=== PATIENT | female | born 1985 | race Caucasian/White ===

== ENCOUNTER 2021-04-07 17:03 | Inpatient (IN) | payer MEDICARE ==
[~2021-04-07] VITALS: Ht 165.1 cm; Wt 88.0 kg
[2021-04-07 18:37] LABS: BASOPHILS % (AUTO) 0.6 % (0.0-2.0); EOSINOPHILS % (AUTO) 5.5 % (1.0-6.0); HEMATOCRIT 40.4 % (36-46); HEMOGLOBIN 13.6 g/dL (12.0-16.0); LYMPHOCYTES # (AUTO) 1.7 K/uL (1.0-4.8); LYMPHOCYTES % (AUTO) 28.9 % (22.0-44.0); MEAN CORPUSCULAR HEMOGLOBIN 30.2 pg (26.0-34.0); MEAN CORPUSCULAR HGB CONC 33.7 G/dL (31.0-37.0); MEAN CORPUSCULAR VOLUME 90 fL (80-100); MONOCYTES # (AUTO) 0.5 K/uL (0.1-1.0); MONOCYTES % (AUTO) 8.3 % (2.0-9.0); NEUTROPHILS # (AUTO) 3.4 K/uL (1.8-7.7); NEUTROPHILS % (AUTO) 56.7 % (40.0-70.0); PLATELET COUNT (AUTO) 234 K/uL (150-450); RED BLOOD CELL COUNT(AUTO) 4.51 MIL/uL (4.00-5.20); RED CELL DISTRIBUTION WIDTH 13.5 % (11.5-14.5)
[2021-04-07 18:52] LABS: ANION GAP 11 mmol/L (8-16); CALCIUM, TOTAL 8.9 mg/dL (8.8-10.5); CARBON DIOXIDE 26 mmol/L (22-29); CHLORIDE 106 mmol/L (98-107); CREATININE 0.67 mg/dL (0.60-1.30); GLOMERULAR FILTR. RATE CALC > 60 mL/min (>60); GLUCOSE,RANDOM 78 mg/dL (70-110); POTASSIUM 3.9 mmol/L (3.5-5.1); SODIUM SERUM 143 mmol/L (136-145); UREA NITROGEN, BLOOD 10 mg/dL (7-18)
[2021-04-07 18:56] LABS: AMPHET/METH SCREEN,URINE NEGATIVE (NEGATIVE); BARBITURATE SCREEN, URINE NEGATIVE (NEGATIVE); BENZODIAZEPINES SCREEN,URINE NEGATIVE (NEGATIVE); CANNABINOID SCREEN,URINE NEGATIVE (NEGATIVE); COCAINE SCREEN,URINE NEGATIVE (NEGATIVE); METHADONE SCREEN, URINE NEGATIVE (NEGATIVE); OPIATE SCREEN,URINE NEGATIVE (NEGATIVE)
[2021-04-07 18:59] LABS: ALANINE AMINOTRANSFERASE 13 U/L (12-78); ALBUMIN 3.8 g/dL (3.4-5.0); ALKALINE PHOSPHATASE 41 U/L (46-116); ASPARTATE AMINOTRANSFERASE 13 U/L (15-37); BILIRUBIN,TOTAL 0.3 mg/dL (0.1-1.0); TOTAL PROTEIN, SERUM 7.3 g/dL (6.4-8.2)
[2021-04-07 19:00] LABS: PHENCYCLIDINE SCREEN,URINE NEGATIVE (NEGATIVE)
[2021-04-07 19:08] LABS: SALICYLATE 1.4 mg/dL (2.8-20.0)
[2021-04-07 19:21] LABS: ACETAMINOPHEN < 2 mcg/mL (10-30)
[2021-04-07] MEDS ORDERED: ZOLPIDEM TARTRATE 10 MG TABLET PO PRN (19:30)
[2021-04-07] MEDS ORDERED: QUEtiapine FUMARATE 100 MG TABLET PO PRN (19:30)
[2021-04-07 20:36] LABS: COVID AG,FIA SOURCE NASOPHARYNGEAL
[2021-04-08 01:11] VITALS: BP 129/92
[2021-04-08 08:06] VITALS: BP 116/78
[2021-04-08] MEDS: LORazepam 2 MG TABLET PO PRN ×2 (08:59→17:16)
[2021-04-08] MEDS ORDERED: ALBUTEROL SULFATE HFA 90 MCG/PUFF 8 GM INHALER IH PRN (15:45)
[2021-04-08] MEDS ORDERED: ONDANSETRON HCL 4 MG TABLET PO PRN (15:45)
[2021-04-08] MEDS ORDERED: MAG HYDROX/AL HYDROX/SIMETH ES 30 ML SUSPENSION UDCUP PO PRN (15:45)
[2021-04-08] MEDS ORDERED: ACETAMINOPHEN 325 MG TABLET PO PRN (15:45)
[2021-04-08] MEDS ORDERED: GuaiFENesin/D-METHORPHAN [SUGAR-FREE] 200-20MG/10 ML SYRUP UDCUP PO PRN (15:45)
[2021-04-08] MEDS ORDERED: LOPERAMIDE HCL 2 MG CAPSULE PO PRN (15:45)
[2021-04-08] MEDS ORDERED: CloNIDine HCL 0.1 MG TABLET PO PRN (15:45)
[2021-04-08] MEDS ORDERED: PETROLATUM,WHITE 28 GM JELLY TP PRN (15:45)
[2021-04-08] MEDS ORDERED: IBUPROFEN 400 MG TABLET PO PRN (15:45)
[2021-04-08] MEDS ORDERED: MAGNESIUM HYDROXIDE SUSPENSION 30 ML UDCUP PO PRN (15:45)
[2021-04-08] MEDS ORDERED: NICOTINE 14 MG/24 HOUR PATCH TD PRN (15:45)
[2021-04-08] MEDS ORDERED: DOCUSATE SODIUM 100 MG CAPSULE PO PRN (15:45)
[2021-04-08 16:05] VITALS: BP 120/72
[2021-04-08] MEDS: TraZODone HCL 50 MG TABLET PO SCH (20:12)
[2021-04-08] MEDS: OLANZapine 5 MG TABLET PO SCH (20:12)
[2021-04-09 00:17] VITALS: BP 107/68
[2021-04-09 08:02] VITALS: BP 113/74
[2021-04-09 08:17] LABS: CHOL/HDL RATIO 3.8 (3.9-5.7); FREE T4 (FREE THYROXINE) 0.9 ng/dL (0.76-1.46); THYROID STIMULATING HORMONE 1.23 uIU/mL (0.36-3.74)
[2021-04-09] MEDS: OLANZapine 5 MG TABLET PO SCH ×2 (08:56→20:03)
[2021-04-09] MEDS: BuPROPion HCL XL 150 MG ER TABLET PO SCH (09:01)
[2021-04-09] MEDS: LORazepam 2 MG TABLET PO PRN (12:30)
[2021-04-09 16:02] VITALS: BP 104/67
[2021-04-09] MEDS: TraZODone HCL 50 MG TABLET PO SCH (20:03)
[2021-04-10 00:09] VITALS: BP 101/62
[2021-04-10] MEDS: OLANZapine 5 MG TABLET PO SCH ×2 (08:04→20:08)
[2021-04-10] MEDS: BuPROPion HCL XL 150 MG ER TABLET PO SCH (08:04)
[2021-04-10 08:07] VITALS: BP 112/67
[2021-04-10] MEDS: LORazepam 2 MG TABLET PO PRN (12:56)
[2021-04-10 16:01] VITALS: BP 126/75
[2021-04-10] MEDS: TraZODone HCL 50 MG TABLET PO SCH (20:08)
[2021-04-11 00:20] VITALS: BP 107/68
[2021-04-11] MEDS: OLANZapine 5 MG TABLET PO SCH ×2 (08:10→20:14)
[2021-04-11] MEDS: BuPROPion HCL XL 150 MG ER TABLET PO SCH (08:10)
[2021-04-11 08:12] VITALS: BP 136/77
[2021-04-11 08:24] VITALS: BP 108/60
[2021-04-11] MEDS: LORazepam 2 MG TABLET PO PRN (12:31)
[2021-04-11 16:11] VITALS: BP 104/69
[2021-04-11] MEDS: TraZODone HCL 50 MG TABLET PO SCH (20:14)
[2021-04-12 05:58] VITALS: BP 116/74
[2021-04-12 08:18] VITALS: BP 119/79
[2021-04-12 08:41] LABS: COVID AG,FIA SOURCE NASOPHARYNGEAL
[2021-04-12] MEDS: OLANZapine 5 MG TABLET PO SCH ×2 (09:42→20:14)
[2021-04-12] MEDS: BuPROPion HCL XL 150 MG ER TABLET PO SCH (09:43)
[2021-04-12 16:03] VITALS: BP 116/73
[2021-04-12] MEDS: LORazepam 2 MG TABLET PO PRN (17:33)
[2021-04-12] MEDS: TraZODone HCL 50 MG TABLET PO SCH (20:14)
[2021-04-13 00:03] VITALS: BP 121/76
[2021-04-13 08:06] VITALS: BP 103/74
[2021-04-13] MEDS: OLANZapine 5 MG TABLET PO SCH ×2 (08:46→20:05)
[2021-04-13] MEDS: BuPROPion HCL XL 150 MG ER TABLET PO SCH (08:46)
[2021-04-13] MEDS: LORazepam 2 MG TABLET PO PRN (14:41)
[2021-04-13 16:03] VITALS: BP 106/65
[2021-04-13] MEDS: TraZODone HCL 50 MG TABLET PO SCH (20:05)
[2021-04-14 00:13] VITALS: BP 114/73
[2021-04-14] MEDS: BuPROPion HCL XL 150 MG ER TABLET PO SCH (08:13)
[2021-04-14] MEDS: OLANZapine 5 MG TABLET PO SCH ×2 (08:13→20:09)
[2021-04-14 08:16] VITALS: BP 121/73
[2021-04-14] MEDS: LORazepam 2 MG TABLET PO PRN ×2 (11:19→16:57)
[2021-04-14 16:14] VITALS: BP 125/80
[2021-04-14] MEDS: TraZODone HCL 50 MG TABLET PO SCH (20:09)
[2021-04-15 00:18] VITALS: BP 121/84
[2021-04-15] MEDS: OLANZapine 5 MG TABLET PO SCH ×2 (08:00→20:48)
[2021-04-15] MEDS: BuPROPion HCL XL 150 MG ER TABLET PO SCH (08:01)
[2021-04-15 08:02] VITALS: BP 113/77
[2021-04-15 16:14] VITALS: BP 105/76
[2021-04-15] MEDS: LORazepam 2 MG TABLET PO PRN (18:45)
[2021-04-15] MEDS: TraZODone HCL 50 MG TABLET PO SCH (20:48)
[2021-04-16 00:10] VITALS: BP 113/70
[2021-04-16 08:06] VITALS: BP 114/78
[2021-04-16] MEDS: BuPROPion HCL XL 150 MG ER TABLET PO SCH (08:09)
[2021-04-16] MEDS: OLANZapine 5 MG TABLET PO SCH ×2 (08:09→20:31)
[2021-04-16] MEDS: LORazepam 2 MG TABLET PO PRN ×2 (08:33→16:05)
[2021-04-16 16:07] VITALS: BP 115/66
[2021-04-16] MEDS: TraZODone HCL 50 MG TABLET PO SCH (20:31)
[2021-04-17 00:19] VITALS: BP 123/68
[2021-04-17 08:00] VITALS: BP 123/72
[2021-04-17 08:05] VITALS: BP 123/75
[2021-04-17] MEDS: OLANZapine 5 MG TABLET PO SCH ×2 (08:10→20:30)
[2021-04-17] MEDS: BuPROPion HCL XL 150 MG ER TABLET PO SCH (08:11)
[2021-04-17] MEDS: LORazepam 2 MG TABLET PO PRN (14:02)
[2021-04-17 16:00] VITALS: BP 106/70
[2021-04-17] MEDS: TraZODone HCL 50 MG TABLET PO SCH (20:30)
[2021-04-18 05:34] VITALS: BP 115/71
[2021-04-18] MEDS: OLANZapine 5 MG TABLET PO SCH ×2 (08:04→20:27)
[2021-04-18] MEDS: BuPROPion HCL XL 150 MG ER TABLET PO SCH (08:04)
[2021-04-18 08:05] VITALS: BP 115/74
[2021-04-18 09:39] LABS: GLUCOMETER DEV NAME(LOC) POC.BV
[2021-04-18] MEDS: LORazepam 2 MG TABLET PO PRN ×2 (12:00→16:33)
[2021-04-18 16:02] VITALS: BP 125/66
[2021-04-18] MEDS: TraZODone HCL 50 MG TABLET PO SCH (20:27)
[2021-04-19 06:04] VITALS: BP 104/66
[2021-04-19] MEDS: BuPROPion HCL XL 150 MG ER TABLET PO SCH (08:07)
[2021-04-19] MEDS: OLANZapine 5 MG TABLET PO SCH ×2 (08:07→20:13)
[2021-04-19 08:09] VITALS: BP 108/68
[2021-04-19] MEDS: LORazepam 2 MG TABLET PO PRN ×2 (12:47→17:34)
[2021-04-19 16:05] VITALS: BP 109/73
[2021-04-19] MEDS: TraZODone HCL 50 MG TABLET PO SCH (20:13)
[2021-04-20 00:29] VITALS: BP 108/76
[2021-04-20 08:11] VITALS: BP 105/70
[2021-04-20] MEDS: BuPROPion HCL XL 150 MG ER TABLET PO SCH (09:04)
[2021-04-20] MEDS: OLANZapine 5 MG TABLET PO SCH ×2 (09:04→20:47)
[2021-04-20] MEDS: LORazepam 2 MG TABLET PO PRN ×2 (13:56→20:15)
[2021-04-20 16:13] VITALS: BP 110/66
[2021-04-20] MEDS: TraZODone HCL 50 MG TABLET PO SCH (20:47)
[2021-04-21 06:42] VITALS: BP 127/79
[2021-04-21 08:08] VITALS: BP 126/86
[2021-04-21] MEDS: BuPROPion HCL XL 150 MG ER TABLET PO SCH (08:41)
[2021-04-21] MEDS: OLANZapine 5 MG TABLET PO SCH ×2 (08:41→20:17)
[2021-04-21] MEDS: LORazepam 2 MG TABLET PO PRN (14:35)
[2021-04-21 16:03] VITALS: BP 122/79
[2021-04-21] MEDS: TraZODone HCL 50 MG TABLET PO SCH (20:17)
[2021-04-22 06:52] VITALS: BP 115/81
[2021-04-22 08:06] VITALS: BP 132/85
[2021-04-22] MEDS: BuPROPion HCL XL 150 MG ER TABLET PO SCH (08:10)
[2021-04-22] MEDS: OLANZapine 5 MG TABLET PO SCH ×2 (08:10→20:13)
[2021-04-22 16:10] VITALS: BP 115/68
[2021-04-22] MEDS: LORazepam 2 MG TABLET PO PRN (17:42)
[2021-04-22] MEDS: TraZODone HCL 50 MG TABLET PO SCH (20:13)
[2021-04-23 05:35] VITALS: BP 109/70
[2021-04-23 08:11] VITALS: BP_SYST 121; BP_SYST 128; BP_DIAS 80; BP_DIAS 84
[2021-04-23] MEDS: BuPROPion HCL XL 150 MG ER TABLET PO SCH (08:50)
[2021-04-23] MEDS: OLANZapine 5 MG TABLET PO SCH (08:50)
[2021-04-23] MEDS ORDERED: TRAZ-252 PO (09:27)
[2021-04-23] MEDS ORDERED: BUPR-93 PO (09:28)
[2021-04-23] MEDS ORDERED: OLAN5TAB52 PO (09:28)
== END 2021-04-23 13:00 | disposition home or self-care (01) | DRG 885 ==
LOC: EMS 17:03 → B2X 21:00
DX: F25.1 Schizoaffective disorder, depressive type (principal); R45.851 Suicidal ideations; Z20.822 Contact with and (suspected) exposure to COVID-19; E66.3 Overweight; F41.9 Anxiety disorder, unspecified; R00.1 Bradycardia, unspecified; Z79.899 Other long term (current) drug therapy; Z59.0 Homelessness; Z91.5 Personal history of self-harm; Z88.8 Allergy status to other drugs, medicaments and biological substances; Z68.32 Body mass index [BMI] 32.0-32.9, adult
CPT/HCPCS: 80053; 80061; 83036; 84439; 84443; 85025; 99285; G0480; G0481

== ENCOUNTER 2021-05-11 11:13 | Inpatient (IN) | payer MEDICARE ==
[~2021-05-11] VITALS: Ht 165.1 cm; Wt 88.2 kg
[~2021-05-11 11:13] MED LIST: BUPR-93 PO; OLAN5TAB52 PO; TRAZ-252 PO
[2021-05-11 12:22] LABS: GLUCOMETER DEV NAME(LOC) POC.BV
[2021-05-11] MEDS ORDERED: MAGNESIUM HYDROXIDE SUSPENSION 30 ML UDCUP PO PRN (16:15)
[2021-05-11] MEDS ORDERED: GuaiFENesin/D-METHORPHAN [SUGAR-FREE] 200-20MG/10 ML SYRUP UDCUP PO PRN (16:15)
[2021-05-11] MEDS ORDERED: PETROLATUM,WHITE 28 GM JELLY TP PRN (16:15)
[2021-05-11] MEDS ORDERED: MAG HYDROX/AL HYDROX/SIMETH ES 30 ML SUSPENSION UDCUP PO PRN (16:15)
[2021-05-11] MEDS ORDERED: ALBUTEROL SULFATE HFA 90 MCG/PUFF 8 GM INHALER IH PRN (16:15)
[2021-05-11] MEDS ORDERED: CloNIDine HCL 0.1 MG TABLET PO PRN (16:15)
[2021-05-11] MEDS ORDERED: NICOTINE 14 MG/24 HOUR PATCH TD PRN (16:15)
[2021-05-11] MEDS ORDERED: DOCUSATE SODIUM 100 MG CAPSULE PO PRN (16:15)
[2021-05-11] MEDS ORDERED: LOPERAMIDE HCL 2 MG CAPSULE PO PRN (16:15)
[2021-05-11] MEDS ORDERED: ONDANSETRON HCL 4 MG TABLET PO PRN (16:15)
[2021-05-11 16:54] VITALS: BP 120/75
[2021-05-11] MEDS ORDERED: INFLUENZA VIRUS VACCINE QVS 2021-22 (6MO+)/PF 60 MCG/0.5 ML SYRINGE IM. ONE (17:00)
[2021-05-11] MEDS: LORazepam 2 MG TABLET PO PRN (17:12)
[2021-05-11] MEDS: HALOPERIDOL 5 MG TABLET PO PRN (17:12)
[2021-05-11 17:53] VITALS: BP 132/85
[2021-05-11] MEDS: ZOLPIDEM TARTRATE 10 MG TABLET PO PRN (20:47)
[2021-05-12 00:50] VITALS: BP 122/75
[2021-05-12 07:56] LABS: BASOPHILS % (AUTO) 0.3 % (0.0-2.0); EOSINOPHILS % (AUTO) 4.1 % (1.0-6.0); HEMATOCRIT 38.1 % (36-46); HEMOGLOBIN 12.7 g/dL (12.0-16.0); LYMPHOCYTES # (AUTO) 2.2 K/uL (1.0-4.8); LYMPHOCYTES % (AUTO) 33.8 % (22.0-44.0); MEAN CORPUSCULAR HGB CONC 33.4 G/dL (31.0-37.0); MEAN CORPUSCULAR VOLUME 90 fL (80-100); MONOCYTES # (AUTO) 0.6 K/uL (0.1-1.0); MONOCYTES % (AUTO) 8.6 % (2.0-9.0); NEUTROPHILS # (AUTO) 3.5 K/uL (1.8-7.7); NEUTROPHILS % (AUTO) 53.2 % (40.0-70.0); PLATELET COUNT (AUTO) 240 K/uL (150-450); RED BLOOD CELL COUNT(AUTO) 4.25 MIL/uL (4.00-5.20); RED CELL DISTRIBUTION WIDTH 14.2 % (11.5-14.5)
[2021-05-12 08:06] LABS: HEMOGLOBIN A1C 5.1 % (3.8-5.6)
[2021-05-12] MEDS: LORazepam 2 MG TABLET PO PRN (08:18)
[2021-05-12] MEDS: HALOPERIDOL 5 MG TABLET PO PRN (08:19)
[2021-05-12 08:30] LABS: ALANINE AMINOTRANSFERASE 12 U/L (12-78); ALBUMIN 3.3 g/dL (3.4-5.0); ALKALINE PHOSPHATASE 40 U/L (46-116); ANION GAP 14 mmol/L (8-16); ASPARTATE AMINOTRANSFERASE 5 U/L (15-37); BILIRUBIN,TOTAL 0.3 mg/dL (0.1-1.0); CALCIUM, TOTAL 8.1 mg/dL (8.8-10.5); CARBON DIOXIDE 21 mmol/L (22-29); CHLORIDE 110 mmol/L (98-107); CHOL/HDL RATIO 4.2 (3.9-5.7); CHOLESTEROL 154 mg/dL (131-200); CREATININE 0.93 mg/dL (0.60-1.30); FREE T4 (FREE THYROXINE) 0.97 ng/dL (0.76-1.46); GLOMERULAR FILTR. RATE CALC > 60 mL/min (>60); GLUCOSE,RANDOM 78 mg/dL (70-110); HCG,QUANTITATIVE < 1 mIU/mL (0-6); HDL CHOLESTEROL 37 mg/dL (40-60); LDL CHOL (CALC.) 106 mg/dL (0-130); POTASSIUM 3.7 mmol/L (3.5-5.1); SODIUM SERUM 145 mmol/L (136-145); TOTAL PROTEIN, SERUM 6.7 g/dL (6.4-8.2); TRIGLYCERIDES 53 mg/dL (15-150); UREA NITROGEN, BLOOD 20 mg/dL (7-18)
[2021-05-12 08:32] VITALS: BP 107/71
[2021-05-12 16:15] VITALS: BP 119/85
[2021-05-12] MEDS: OLANZapine 5 MG TABLET PO SCH (16:47)
[2021-05-12] MEDS: TraZODone HCL 50 MG TABLET PO SCH (20:31)
[2021-05-12] MEDS: ZOLPIDEM TARTRATE 10 MG TABLET PO PRN (20:31)
[2021-05-13 00:28] VITALS: BP 110/82
[2021-05-13 08:33] VITALS: BP 116/71
[2021-05-13] MEDS: BuPROPion HCL XL 150 MG ER TABLET PO SCH (08:42)
[2021-05-13] MEDS: OLANZapine 5 MG TABLET PO SCH ×2 (08:42→16:02)
[2021-05-13] MEDS: LORazepam 2 MG TABLET PO PRN ×2 (08:42→16:03)
[2021-05-13 16:05] VITALS: BP 117/76
[2021-05-13] MEDS: ZOLPIDEM TARTRATE 10 MG TABLET PO PRN (20:46)
[2021-05-13] MEDS: TraZODone HCL 50 MG TABLET PO SCH (20:46)
[2021-05-14 00:47] VITALS: BP 112/71
[2021-05-14 08:13] VITALS: BP 110/76
[2021-05-14] MEDS: BuPROPion HCL XL 150 MG ER TABLET PO SCH (08:25)
[2021-05-14] MEDS: OLANZapine 5 MG TABLET PO SCH ×2 (08:25→17:11)
[2021-05-14] MEDS: LORazepam 2 MG TABLET PO PRN (08:52)
[2021-05-14 16:26] VITALS: BP 127/76
[2021-05-14] MEDS: TraZODone HCL 50 MG TABLET PO SCH (20:33)
[2021-05-15 05:29] VITALS: BP 119/74
[2021-05-15] MEDS: LORazepam 2 MG TABLET PO PRN (07:00)
[2021-05-15 08:21] VITALS: BP 110/73
[2021-05-15] MEDS: OLANZapine 5 MG TABLET PO SCH ×2 (08:22→16:48)
[2021-05-15] MEDS: BuPROPion HCL XL 150 MG ER TABLET PO SCH (08:22)
[2021-05-15 16:13] VITALS: BP 117/72
[2021-05-15] MEDS: ZOLPIDEM TARTRATE 10 MG TABLET PO PRN (21:08)
[2021-05-16 01:52] VITALS: BP 112/68
[2021-05-16] MEDS: BuPROPion HCL XL 150 MG ER TABLET PO SCH (08:10)
[2021-05-16] MEDS: LORazepam 2 MG TABLET PO PRN ×2 (08:10→15:52)
[2021-05-16] MEDS: OLANZapine 5 MG TABLET PO SCH ×2 (08:10→16:03)
[2021-05-16] MEDS: HALOPERIDOL 5 MG TABLET PO PRN (08:12)
[2021-05-16 08:36] VITALS: BP 111/68
[2021-05-16 16:19] VITALS: BP 108/80
[2021-05-17 00:06] VITALS: BP 104/76
[2021-05-17] MEDS: OLANZapine 5 MG TABLET PO SCH ×2 (08:29→16:04)
[2021-05-17] MEDS: BuPROPion HCL XL 150 MG ER TABLET PO SCH (08:29)
[2021-05-17 08:43] VITALS: BP 119/78
[2021-05-17] MEDS: HALOPERIDOL 5 MG TABLET PO PRN ×2 (09:50→15:47)
[2021-05-17] MEDS: LORazepam 2 MG TABLET PO PRN ×2 (09:50→15:47)
[2021-05-17 16:11] VITALS: BP 103/73
[2021-05-17] MEDS: ZOLPIDEM TARTRATE 10 MG TABLET PO PRN (21:00)
[2021-05-18 00:08] VITALS: BP 100/68
[2021-05-18] MEDS: BuPROPion HCL XL 150 MG ER TABLET PO SCH (08:18)
[2021-05-18] MEDS: OLANZapine 5 MG TABLET PO SCH (08:18)
[2021-05-18 08:22] VITALS: BP 119/68
[2021-05-18] MEDS: LORazepam 2 MG TABLET PO PRN ×2 (08:35→16:46)
[2021-05-18] MEDS: HALOPERIDOL 5 MG TABLET PO PRN (08:35)
[2021-05-18 16:23] VITALS: BP 108/67
[2021-05-18] MEDS: ACETAMINOPHEN 325 MG TABLET PO PRN (16:45)
[2021-05-18] MEDS: OLANZapine 10 MG TABLET PO SCH (20:50)
[2021-05-18] MEDS: ZOLPIDEM TARTRATE 10 MG TABLET PO PRN (20:50)
[2021-05-19 00:36] VITALS: BP 100/63
[2021-05-19] MEDS: BuPROPion HCL XL 150 MG ER TABLET PO SCH (07:58)
[2021-05-19] MEDS: LORazepam 2 MG TABLET PO PRN ×2 (07:58→16:10)
[2021-05-19] MEDS: OLANZapine 10 MG TABLET PO SCH ×2 (07:58→20:21)
[2021-05-19 08:52] VITALS: BP 111/70
[2021-05-19] MEDS: HALOPERIDOL 5 MG TABLET PO PRN (16:10)
[2021-05-19 16:34] VITALS: BP 113/77
[2021-05-19] MEDS: ZOLPIDEM TARTRATE 10 MG TABLET PO PRN (20:21)
[2021-05-20 00:28] VITALS: BP 110/67
[2021-05-20] MEDS: LORazepam 2 MG TABLET PO PRN ×2 (08:13→13:42)
[2021-05-20] MEDS: HALOPERIDOL 5 MG TABLET PO PRN (08:13)
[2021-05-20] MEDS: OLANZapine 10 MG TABLET PO SCH ×2 (08:13→20:21)
[2021-05-20] MEDS: BuPROPion HCL XL 150 MG ER TABLET PO SCH (08:13)
[2021-05-20 08:37] VITALS: BP 116/53
[2021-05-20 16:17] VITALS: BP 127/79
[2021-05-20] MEDS: ZOLPIDEM TARTRATE 10 MG TABLET PO PRN (20:29)
[2021-05-21 07:14] VITALS: BP 119/72
[2021-05-21 07:19] VITALS: BP 125/77
[2021-05-21] MEDS: LORazepam 2 MG TABLET PO PRN (08:12)
[2021-05-21] MEDS: OLANZapine 10 MG TABLET PO SCH ×2 (08:12→20:31)
[2021-05-21] MEDS: BuPROPion HCL XL 150 MG ER TABLET PO SCH (08:12)
[2021-05-21] MEDS: HALOPERIDOL 5 MG TABLET PO PRN ×2 (08:14→15:01)
[2021-05-21 08:24] VITALS: BP 123/75
[2021-05-21 16:22] VITALS: BP 117/75
[2021-05-22 00:34] VITALS: BP 112/71
[2021-05-22] MEDS: LORazepam 2 MG TABLET PO PRN ×2 (05:43→10:23)
[2021-05-22] MEDS: BuPROPion HCL XL 150 MG ER TABLET PO SCH (08:18)
[2021-05-22] MEDS: OLANZapine 10 MG TABLET PO SCH ×2 (08:18→20:32)
[2021-05-22 08:22] VITALS: BP 105/69
[2021-05-22 08:33] LABS: COVID AG,FIA SOURCE NASAL SWAB
[2021-05-22 10:00] VITALS: BP 112/74
[2021-05-22] MEDS: HALOPERIDOL 5 MG TABLET PO PRN (10:23)
[2021-05-22 16:27] VITALS: BP 132/88
[2021-05-22] MEDS: DiphenhydrAMINE HCL 25 MG CAPSULE PO SCH (20:32)
[2021-05-23 00:10] VITALS: BP 128/74
[2021-05-23] MEDS: LORazepam 2 MG TABLET PO PRN ×3 (05:56→16:44)
[2021-05-23 08:30] VITALS: BP 105/72
[2021-05-23] MEDS: BuPROPion HCL XL 150 MG ER TABLET PO SCH (08:38)
[2021-05-23] MEDS: OLANZapine 10 MG TABLET PO SCH ×2 (08:38→21:01)
[2021-05-23] MEDS: ACETAMINOPHEN 325 MG TABLET PO PRN (14:56)
[2021-05-23 16:10] VITALS: BP 101/66
[2021-05-23] MEDS: HALOPERIDOL 5 MG TABLET PO PRN (16:45)
[2021-05-23] MEDS: DiphenhydrAMINE HCL 25 MG CAPSULE PO SCH (21:01)
[2021-05-23] MEDS: ZOLPIDEM TARTRATE 10 MG TABLET PO PRN (22:04)
[2021-05-24 01:12] VITALS: BP 124/76
[2021-05-24] MEDS: LORazepam 2 MG TABLET PO PRN ×3 (05:59→17:20)
[2021-05-24] MEDS: HALOPERIDOL 5 MG TABLET PO PRN ×2 (08:08→12:15)
[2021-05-24] MEDS: OLANZapine 10 MG TABLET PO SCH ×2 (08:08→20:27)
[2021-05-24] MEDS: BuPROPion HCL XL 150 MG ER TABLET PO SCH (08:08)
[2021-05-24 08:44] VITALS: BP 110/61
[2021-05-24 16:18] VITALS: BP 145/84
[2021-05-24] MEDS: IBUPROFEN 400 MG TABLET PO PRN (17:22)
[2021-05-24 18:22] VITALS: BP 110/61
[2021-05-24] MEDS: DiphenhydrAMINE HCL 25 MG CAPSULE PO SCH (20:27)
[2021-05-25 00:43] VITALS: BP 125/76
[2021-05-25] MEDS: LORazepam 2 MG TABLET PO PRN ×2 (05:54→12:40)
[2021-05-25] MEDS: OLANZapine 10 MG TABLET PO SCH ×2 (08:12→20:01)
[2021-05-25] MEDS: BuPROPion HCL XL 150 MG ER TABLET PO SCH (08:12)
[2021-05-25 09:17] VITALS: BP 121/68
[2021-05-25 16:20] VITALS: BP 106/65
[2021-05-25] MEDS: ZOLPIDEM TARTRATE 10 MG TABLET PO PRN (20:00)
[2021-05-25] MEDS: DOXEPIN HCL 10 MG CAPSULE PO SCH (20:01)
[2021-05-26 02:22] VITALS: BP 118/70
[2021-05-26] MEDS: LORazepam 2 MG TABLET PO PRN ×2 (06:06→11:51)
[2021-05-26 08:21] VITALS: BP 116/74
[2021-05-26] MEDS: BuPROPion HCL XL 150 MG ER TABLET PO SCH (08:58)
[2021-05-26] MEDS: OLANZapine 10 MG TABLET PO SCH ×2 (08:58→20:25)
[2021-05-26 16:20] VITALS: BP 130/84
[2021-05-26] MEDS: HALOPERIDOL 5 MG TABLET PO PRN (17:08)
[2021-05-26] MEDS: DOXEPIN HCL 10 MG CAPSULE PO SCH (20:25)
[2021-05-27 01:08] VITALS: BP 117/88
[2021-05-27] MEDS: LORazepam 2 MG TABLET PO PRN ×3 (05:07→15:48)
[2021-05-27] MEDS: HALOPERIDOL 5 MG TABLET PO PRN (07:59)
[2021-05-27] MEDS: OLANZapine 10 MG TABLET PO SCH ×2 (07:59→20:36)
[2021-05-27] MEDS: BuPROPion HCL XL 150 MG ER TABLET PO SCH (07:59)
[2021-05-27 08:19] VITALS: BP 129/80
[2021-05-27 16:18] VITALS: BP 140/90
[2021-05-27] MEDS: DOXEPIN HCL 10 MG CAPSULE PO SCH (20:36)
[2021-05-27] MEDS: ZOLPIDEM TARTRATE 10 MG TABLET PO PRN (21:01)
[2021-05-28 05:00] VITALS: BP 136/80
[2021-05-28] MEDS: LORazepam 2 MG TABLET PO PRN ×3 (05:42→15:57)
[2021-05-28] MEDS: BuPROPion HCL XL 150 MG ER TABLET PO SCH (08:05)
[2021-05-28] MEDS: OLANZapine 10 MG TABLET PO SCH ×2 (08:05→20:53)
[2021-05-28 08:41] VITALS: BP 113/68
[2021-05-28] MEDS: HALOPERIDOL 5 MG TABLET PO PRN (13:59)
[2021-05-28 16:11] VITALS: BP 128/77
[2021-05-28] MEDS: DOXEPIN HCL 10 MG CAPSULE PO SCH (20:53)
[2021-05-28] MEDS: ZOLPIDEM TARTRATE 10 MG TABLET PO PRN (20:54)
[2021-05-29 01:22] VITALS: BP 122/82
[2021-05-29] MEDS: LORazepam 2 MG TABLET PO PRN ×3 (05:17→18:46)
[2021-05-29 08:21] VITALS: BP 122/78
[2021-05-29] MEDS: OLANZapine 10 MG TABLET PO SCH ×2 (08:53→20:32)
[2021-05-29] MEDS: BuPROPion HCL XL 150 MG ER TABLET PO SCH (08:53)
[2021-05-29 11:22] LABS: GLUCOMETER DEV NAME(LOC) POC.BV
[2021-05-29] MEDS: HALOPERIDOL 5 MG TABLET PO PRN (13:28)
[2021-05-29 16:17] VITALS: BP 125/78
[2021-05-29] MEDS: DOXEPIN HCL 10 MG CAPSULE PO SCH (20:32)
[2021-05-29] MEDS: ZOLPIDEM TARTRATE 10 MG TABLET PO PRN (20:33)
[2021-05-30 01:46] VITALS: BP 114/72
[2021-05-30] MEDS: LORazepam 2 MG TABLET PO PRN ×3 (05:22→17:34)
[2021-05-30] MEDS: OLANZapine 10 MG TABLET PO SCH ×2 (08:04→20:40)
[2021-05-30] MEDS: BuPROPion HCL XL 150 MG ER TABLET PO SCH (08:04)
[2021-05-30 08:44] VITALS: BP 118/74
[2021-05-30] MEDS: IBUPROFEN 400 MG TABLET PO PRN (12:35)
[2021-05-30 16:16] VITALS: BP 132/81
[2021-05-30] MEDS: HALOPERIDOL 5 MG TABLET PO PRN (17:35)
[2021-05-30] MEDS: DOXEPIN HCL 10 MG CAPSULE PO SCH (20:40)
[2021-05-30] MEDS: ZOLPIDEM TARTRATE 10 MG TABLET PO PRN (20:45)
[2021-05-31 00:36] VITALS: BP 122/76
[2021-05-31] MEDS: LORazepam 2 MG TABLET PO PRN ×2 (05:50→12:26)
[2021-05-31] MEDS: BuPROPion HCL XL 150 MG ER TABLET PO SCH (08:13)
[2021-05-31] MEDS: OLANZapine 10 MG TABLET PO SCH ×2 (08:13→20:26)
[2021-05-31] MEDS: HALOPERIDOL 5 MG TABLET PO PRN (08:42)
[2021-05-31 08:45] VITALS: BP 114/78
[2021-05-31 16:24] VITALS: BP 130/84
[2021-05-31] MEDS: DOXEPIN HCL 10 MG CAPSULE PO SCH (20:26)
[2021-05-31] MEDS: ZOLPIDEM TARTRATE 10 MG TABLET PO PRN (20:26)
[2021-06-01 00:32] VITALS: BP 122/82
[2021-06-01] MEDS: LORazepam 2 MG TABLET PO PRN ×3 (05:23→16:17)
[2021-06-01] MEDS: HALOPERIDOL 5 MG TABLET PO PRN ×2 (06:20→11:51)
[2021-06-01] MEDS: OLANZapine 10 MG TABLET PO SCH ×2 (08:11→20:32)
[2021-06-01] MEDS: BuPROPion HCL XL 150 MG ER TABLET PO SCH (08:11)
[2021-06-01 08:33] VITALS: BP 100/69
[2021-06-01 09:00] VITALS: BP 112/72
[2021-06-01 16:12] VITALS: BP 121/67
[2021-06-01] MEDS: ZOLPIDEM TARTRATE 10 MG TABLET PO PRN (20:32)
[2021-06-01] MEDS: DOXEPIN HCL 10 MG CAPSULE PO SCH (20:32)
[2021-06-02 01:40] VITALS: BP 112/70
[2021-06-02] MEDS: LORazepam 2 MG TABLET PO PRN ×2 (06:18→14:14)
[2021-06-02] MEDS: HALOPERIDOL 5 MG TABLET PO PRN (06:18)
[2021-06-02 08:31] VITALS: BP 116/77
[2021-06-02] MEDS: BuPROPion HCL XL 150 MG ER TABLET PO SCH (09:59)
[2021-06-02] MEDS: OLANZapine 10 MG TABLET PO SCH ×2 (10:00→20:44)
[2021-06-02 16:21] VITALS: BP 112/77
[2021-06-02] MEDS: DOXEPIN HCL 10 MG CAPSULE PO SCH (20:44)
[2021-06-02] MEDS: ZOLPIDEM TARTRATE 10 MG TABLET PO PRN (20:44)
[2021-06-03 01:54] VITALS: BP 108/68
[2021-06-03] MEDS: LORazepam 2 MG TABLET PO PRN ×2 (06:50→12:34)
[2021-06-03] MEDS: OLANZapine 10 MG TABLET PO SCH ×2 (08:11→20:06)
[2021-06-03] MEDS: BuPROPion HCL XL 150 MG ER TABLET PO SCH (08:11)
[2021-06-03 08:40] VITALS: BP 116/76
[2021-06-03] MEDS: HALOPERIDOL 5 MG TABLET PO PRN ×2 (08:54→16:06)
[2021-06-03 16:19] VITALS: BP 135/85
[2021-06-03] MEDS: DOXEPIN HCL 10 MG CAPSULE PO SCH (20:05)
[2021-06-03] MEDS: ZOLPIDEM TARTRATE 10 MG TABLET PO PRN (20:58)
[2021-06-04 02:27] VITALS: BP 126/82
[2021-06-04] MEDS: LORazepam 2 MG TABLET PO PRN ×2 (06:09→12:27)
[2021-06-04] MEDS: BuPROPion HCL XL 150 MG ER TABLET PO SCH (08:18)
[2021-06-04] MEDS: OLANZapine 10 MG TABLET PO SCH ×2 (08:18→20:26)
[2021-06-04 08:29] VITALS: BP 132/71
[2021-06-04] MEDS: HALOPERIDOL 5 MG TABLET PO PRN (12:27)
[2021-06-04 16:22] VITALS: BP 125/82
[2021-06-04] MEDS: DOXEPIN HCL 10 MG CAPSULE PO SCH (20:26)
[2021-06-04] MEDS: ZOLPIDEM TARTRATE 10 MG TABLET PO PRN (20:27)
[2021-06-05 03:25] VITALS: BP 119/72
[2021-06-05] MEDS: LORazepam 2 MG TABLET PO PRN ×2 (05:32→12:30)
[2021-06-05] MEDS: OLANZapine 10 MG TABLET PO SCH ×2 (08:05→20:11)
[2021-06-05] MEDS: BuPROPion HCL XL 150 MG ER TABLET PO SCH (08:05)
[2021-06-05 08:41] VITALS: BP 118/70
[2021-06-05] MEDS: HALOPERIDOL 5 MG TABLET PO PRN (12:31)
[2021-06-05 16:27] VITALS: BP 134/88
[2021-06-05] MEDS: DOXEPIN HCL 10 MG CAPSULE PO SCH (20:11)
[2021-06-05] MEDS: ZOLPIDEM TARTRATE 10 MG TABLET PO PRN (21:54)
[2021-06-06 00:48] VITALS: BP 103/71
[2021-06-06] MEDS: LORazepam 2 MG TABLET PO PRN ×2 (06:46→12:21)
[2021-06-06] MEDS: OLANZapine 10 MG TABLET PO SCH ×2 (08:21→21:40)
[2021-06-06] MEDS: HALOPERIDOL 5 MG TABLET PO PRN (08:21)
[2021-06-06] MEDS: BuPROPion HCL XL 150 MG ER TABLET PO SCH (08:21)
[2021-06-06 10:38] VITALS: BP 113/74
[2021-06-06 16:19] VITALS: BP 117/78
[2021-06-06] MEDS: IBUPROFEN 400 MG TABLET PO PRN (16:43)
[2021-06-06] MEDS: DOXEPIN HCL 10 MG CAPSULE PO SCH (21:40)
[2021-06-07 04:19] VITALS: BP 114/72
[2021-06-07] MEDS: LORazepam 2 MG TABLET PO PRN (05:45)
[2021-06-07 08:00] VITALS: BP 124/84
[2021-06-07] MEDS: BuPROPion HCL XL 150 MG ER TABLET PO SCH (08:02)
[2021-06-07] MEDS: IBUPROFEN 400 MG TABLET PO PRN (08:03)
[2021-06-07] MEDS: OLANZapine 10 MG TABLET PO SCH ×2 (08:03→20:29)
[2021-06-07] MEDS: HALOPERIDOL 5 MG TABLET PO PRN ×2 (08:03→18:28)
[2021-06-07 08:27] VITALS: BP 118/82
[2021-06-07] MEDS ORDERED: DOXE10 PO (12:45)
[2021-06-07] MEDS ORDERED: LOPE2 PO (12:53)
[2021-06-07] MEDS ORDERED: HALO5TAB2 PO (12:53)
[2021-06-07] MEDS ORDERED: ONDA-104 PO (12:53)
[2021-06-07] MEDS ORDERED: GUAI5LIQ10 PO (12:53)
[2021-06-07] MEDS ORDERED: DOCU-270 PO (12:53)
[2021-06-07] MEDS ORDERED: ZOLP10TA8 PO (12:53)
[2021-06-07] MEDS ORDERED: CLON0.1T2 PO (12:53)
[2021-06-07] MEDS ORDERED: ALBU8HFA IH (12:53)
[2021-06-07] MEDS ORDERED: LORA-1001 PO (12:53)
[2021-06-07] MEDS ORDERED: MOM30 PO (12:53)
[2021-06-07 16:32] VITALS: BP 115/74
[2021-06-07 17:45] VITALS: BP 115/89
[2021-06-07] MEDS: DOXEPIN HCL 10 MG CAPSULE PO SCH (20:29)
[2021-06-07 21:07] VITALS: BP 108/74
[2021-06-07] MEDS: ZOLPIDEM TARTRATE 10 MG TABLET PO PRN (22:05)
[2021-06-08 04:43] VITALS: BP 118/77
[2021-06-08] MEDS: HALOPERIDOL 5 MG TABLET PO PRN (06:05)
[2021-06-08] MEDS: LORazepam 2 MG TABLET PO PRN (06:05)
[2021-06-08] MEDS: OLANZapine 10 MG TABLET PO SCH (08:24)
[2021-06-08] MEDS: BuPROPion HCL XL 150 MG ER TABLET PO SCH (08:27)
[2021-06-08 08:35] VITALS: BP 111/76
[2021-06-08] MEDS ORDERED: OLAN10TA74 PO ×3 (09:57→10:00)
[2021-06-08] MEDS ORDERED: BUPR-93 PO ×2 (09:57→10:00)
== END 2021-06-08 13:20 | disposition home or self-care (01) | DRG 885 ==
LOC: B3A 12:12
DX: F25.1 Schizoaffective disorder, depressive type (principal); R45.851 Suicidal ideations; R00.1 Bradycardia, unspecified; Z20.822 Contact with and (suspected) exposure to COVID-19; E86.0 Dehydration; E66.9 Obesity, unspecified; Z68.32 Body mass index [BMI] 32.0-32.9, adult; Z59.00 Homelessness unspecified; Z79.899 Other long term (current) drug therapy; Z88.8 Allergy status to other drugs, medicaments and biological substances
CPT/HCPCS: 70450; 80053; 80061; 83036; 84439; 84443; 84702; 85025; 90686; 99284; G0480

== ENCOUNTER 2021-06-07 12:26 | Emergency (ER) | payer MEDICARE ==
[~2021-06-07] VITALS: Ht 167.6 cm; Wt 88.0 kg
[2021-06-07] MEDS ORDERED: DOXE10 PO (12:45)
[2021-06-07] MEDS ORDERED: GUAI5LIQ10 PO (12:53)
[2021-06-07] MEDS ORDERED: CLON0.1T2 PO (12:53)
[2021-06-07] MEDS ORDERED: MOM30 PO (12:53)
[2021-06-07] MEDS ORDERED: DOCU-270 PO (12:53)
[2021-06-07] MEDS ORDERED: ONDA-104 PO (12:53)
[2021-06-07] MEDS ORDERED: LOPE2 PO (12:53)
[2021-06-07] MEDS ORDERED: ZOLP10TA8 PO (12:53)
[2021-06-07] MEDS ORDERED: HALO5TAB2 PO (12:53)
[2021-06-07] MEDS ORDERED: ALBU8HFA IH (12:53)
[2021-06-07] MEDS ORDERED: LORA-1001 PO (12:53)
[2021-06-07] MEDS ORDERED: ACETAMINOPHEN 325 MG TABLET PO ONE (13:30)
[2021-06-07] MEDS ORDERED: LORazepam 2 MG TABLET PO ONE (13:30)
[2021-06-07 15:56] VITALS: BP 128/76
[2021-06-08] MEDS ORDERED: OLAN10TA74 PO ×3 (09:57→10:00)
[2021-06-08] MEDS ORDERED: BUPR-93 PO ×2 (09:57→10:00)
== END 2021-06-07 15:57 | disposition home or self-care (01) ==
LOC: EMS 12:52
DX: S09.90XA Unspecified injury of head, initial encounter (principal); Y04.0XXA Assault by unarmed brawl or fight, initial encounter; Y93.89 Activity, other specified; Y92.89 Other specified places as the place of occurrence of the external cause; Y99.8 Other external cause status; F32.A Depression, unspecified; F20.9 Schizophrenia, unspecified
CPT/HCPCS: 70450; 99284